=== PATIENT | female | born 1950 | race Caucasian/White ===

== ENCOUNTER → 2017-05-16 | Outpatient (CLI) | payer MEDICARE, BC ==
--- NOTE | 2017-05-18 12:09 | MAM ---
EXAM DESCRIPTION: 3D Screening BILATERAL : Digital Mammography. CLINICAL HISTORY: 66 years Female SCREENING . No complaints. No family history of breast cancer. Postmenopausal. No HRT. COMPARISON: 2-D digital screening bilateral study 01/13/2016. Report from prior examination also reviewed. TECHNIQUE: Bilateral CC and MLO projection full-field images, 3-D tomosynthesis digital mammographic technique. Also bilateral synthesized CC/ MLO full-field images. CAD not utilized. FINDINGS: The breast parenchymal density pattern is: Scattered areas of fibroglandular density. No skin thickening or nipple retraction . Bilateral solitary coarse calcifications and microcalcifications. Multiple ductal calcifications in the anterior breast, left more than right. Stable nodular density upper outer quadrant of the middle third of the left breast. No focal, stellate mass or density, focal asymmetry , and no suspicious microcalcifications bilaterally. Stable mammograms compared to prior study, taking into account differences in mammographic technique IMPRESSION: BI-RADS CATEGORY: 2 - BENIGN FINDINGS. FOLLOW UP: Routine digital bilateral screening, one year interval from May 2017. Written communication explaining the IMPRESSION and follow-up, will be mailed to the patient and referring health care provider. According to the [employer], yearly mammograms are recommended starting at age 40 and continuing as long as a woman is in good health. Any breast change noted on a breast self-exam should be reported promptly to the patient's healthcare provider. Breast MRI is recommended for women with an approximately 20-25% or greater lifetime risk of breast cancer, including women with a strong family history of breast or ovarian cancer and women who have been treated for Hodgkin's disease. A negative mammographic report should not delay tissue diagnosis in patients with significant clinical history or physical findings. Extremely dense breast tissue limits the sensitivity of digital mammography. Electronically signed by: Alvaro Mendoza MD 05/18/2017 12:07 PM [employer]
== END ==
LOC: MAMMO 15:02
PROVIDERS: ATTEND General Practice
DX: Z12.31 Encounter for screening mammogram for malignant neoplasm of breast (principal)
CPT/HCPCS: 77063; G0202

== ENCOUNTER → 2019-02-07 | Outpatient (CLI) | payer MEDICARE, BC ==
--- NOTE | 2019-02-18 11:34 | MAM ---
EXAM DESCRIPTION: MM SCREEN BREAST TOMOSYNTHESIS BILAT 3D : Digital Mammography. CLINICAL HISTORY: 50 years Female screening . No complaints and no personal or family history of breast cancer. Childbirth. Postmenopausal 15+ years. No HRT. Lifetime risk of developing breast cancer (Tyrer-Cuzick model)(%): 3.7. COMPARISON: Bilateral screening digital breast tomosynthesis 05/16/2017. 2-D digital screening bilateral mammography 01/13/2016. TECHNIQUE: Bilateral CC and MLO projection full-field images, digital tomosynthesis mammographic technique. Bilateral digital 2-D full-field MLO images. CAD not available for tomosynthesis or 2-D images. FINDINGS: The breast parenchymal density pattern is: Scattered areas of fibroglandular density. No skin thickening or nipple retraction. Bilateral, solitary, coarse larger, and smaller microcalcifications. Secretory calcifications bilaterally, more on the left. Stable focal asymmetry 3:00 middle third left breast. No new focal, stellate mass or density, focal asymmetry , and no suspicious microcalcifications bilaterally. Stable mammograms compared to prior tomosynthesis study. IMPRESSION: Benign exam. BIRAD CATEGORY: 2 BENIGN FINDINGS. RECOMMENDATIONS: FOLLOW UP: Routine digital bilateral mammographic screening, one year interval from January 2019. Written communication explaining the IMPRESSION and follow-up, will be mailed to the patient and referring health care provider. According to the [employer], yearly mammograms are recommended starting at age 40 and continuing as long as a woman is in good health. Any breast change noted on a breast self-exam should be reported promptly to the patient's healthcare provider. Breast MRI is recommended for women with an approximately 20-25% or greater lifetime risk of breast cancer, including women with a strong family history of breast or ovarian cancer and women who have been treated for Hodgkin's disease. A negative mammographic report should not delay tissue diagnosis in patients with significant clinical history or physical findings. Extremely dense breast tissue limits the sensitivity of digital mammography. Electronically signed by: Alvaro Mendoza MD 02/18/2019 11:33 AM CDT
== END ==
LOC: MAMMO 12:06
PROVIDERS: ATTEND General Practice
DX: Z12.31 Encounter for screening mammogram for malignant neoplasm of breast (principal)

== ENCOUNTER → 2020-05-11 | Outpatient (CLI) | payer MEDICARE, BC ==
--- NOTE | 2020-05-11 11:39 | MRI ---
EXAM DESCRIPTION: Lumbar Spine w/o Contrast : Magnetic Resonance Imaging. CLINICAL HISTORY: RADICULOPATHY COMPARISON: LUMBAR TECHNIQUE: Multiplanar, multiple standard sequences, non contrast MRI, lumbar spine. FINDINGS: L5-S1: The disc is well visualized on axial T2 series 501, image 3. L5 vertebra is transitional with sacralization. The iliolumbar ligament is seen bilaterally inserting on the transverse processes. Disc desiccated with posterior bulge, and central vacuum phenomenon versus calcification. Mild endplate reactive changes on the left with disc spur complex encroaching on the left foramen with moderate narrowing. Mild to moderate narrowing of the right foramen. Minimal hypertrophy of the facet joints and posterior flavum ligaments (canal elements) more left than right. Mild canal narrowing. L4-L5: Disc desiccation and moderate disc space loss. Schmorl's nodes inferior and superior endplates. 8 mm grade 2 anterolisthesis. Posterior disc is uncovered. Moderate hypertrophic changes in the canal elements. AP canal diameter 8 mm. Endplate spur and bone encroachment on the right foramen with mild stenosis and compromise right L4 nerve. Mild to moderate narrowing left foramen. Possible defect in the left L4 pars interarticularis. L3-L4: Disc desiccation and posterior disc space loss. Disc bulge into the canal and bilateral foramina. Grade 1 anterolisthesis 3 mm. Minimal hypertrophic changes in the canal elements. AP canal diameter 8.5 mm. Borderline right foraminal stenosis and moderate left foraminal narrowing. L2-L3: Disc desiccation posterior disc space narrowing and tiny posterior broad-based bulge. Hypertrophic changes in the canal elements. AP canal diameter 11 mm. Bilateral moderate foraminal narrowing. L1-L2: Disc desiccation with anterior posterior bulging. Trace anterolisthesis. Mild depression of the superior L2 endplate with central Schmorl's node but no edema in the disc, the node, or the endplate. Probable retropulsion superior endplate 3.3 mm. Minimal hypertrophic changes in the canal elements. AP canal diameter 12 mm. Borderline right foraminal stenosis and moderate left foraminal narrowing. T12-L1: Disc normal signal with disc space preserved. Canal elements are unremarkable. Bilateral foramina and canal are patent. Conus terminates just below the disc space. L2-L5 levoscoliosis Paravertebral soft tissues fatty muscle atrophy.. Distal cord normal signal and caliber. No marrow signal in the remaining vertebral bodies and the posterior elements. Vertebral bodies are not acutely compressed at any level. IMPRESSION: 1. Sacralization of the L5 vertebral body. Vacuum phenomena and or calcification in the L5-S1 disc space. Left sided plate reactive changes and moderate narrowing of the left foramen. 2. 8 mm grade 2 anterolisthesis L4-L5. Possible defect in the left L4 pars interarticularis. Multifactorial mild to moderate central canal stenosis. Spurring bone encroachment on the right foramen with mild stenosis and compromise right L4 nerve. 3. Grade 1 anterolisthesis L3-L4. Multifactorial mild central canal stenosis. Borderline disc spur right foraminal stenosis. Correlate for right L3 radiculopathy. 4. Old compression injury superior L2 endplate with retropulsion but no canal stenosis. 5. Please refer to FINDINGS for discussion of results at other disc space levels. Electronically signed by: Alvaro Mendoza MD 05/11/2020 11:37 AM [facility]
--- NOTE | 2020-05-12 15:18 | MAM ---
EXAM DESCRIPTION: 3D Screening BILATERAL : Digital Mammography. CLINICAL HISTORY: 69 years Female SCREEN . No complaints. No family history of breast cancer. Menarche age 11. Childbirth age 17. Menopause age 50. Bilateral breast reduction. No HRT. Lifetime risk of developing breast cancer (Tyrer-Cuzick model)(%): 3.5. COMPARISON: Bilateral screening digital breast tomosynthesis January 2019 and May 2017. No prior reports available. TECHNIQUE: Bilateral CC and MLO projection full-field images, digital tomosynthesis mammographic technique. Bilateral digital 2-D full-field MLO images. CAD available for 2-D images. FINDINGS: The breast parenchymal density pattern is: Scattered areas of fibroglandular density. Coarse calcifications. Bilateral solitary microcalcifications. Secretory calcifications more on the left breast. Axillary nodes. No skin thickening or nipple retraction No new focal, stellate mass or density, focal asymmetry , and no suspicious microcalcifications bilaterally. Stable mammograms compared to prior study. IMPRESSION: Benign exam. BIRAD CATEGORY: 2 BENIGN FINDINGS. RECOMMENDATIONS: FOLLOW UP: Routine digital bilateral mammographic screening, one year interval from May 2020. Written communication explaining the IMPRESSION and follow-up, will be mailed to the patient and referring health care provider. According to the [employer], yearly mammograms are recommended starting at age 40 and continuing as long as a woman is in good health. Any breast change noted on a breast self-exam should be reported promptly to the patient's healthcare provider. Breast MRI is recommended for women with an approximately 20-25% or greater lifetime risk of breast cancer, including women with a strong family history of breast or ovarian cancer and women who have been treated for Hodgkin's disease. A negative mammographic report should not delay tissue diagnosis in patients with significant clinical history or physical findings. Extremely dense breast tissue limits the sensitivity of digital mammography. Electronically signed by: Alvaro Mendoza MD 05/12/2020 3:16 PM [employer]
== END ==
LOC: MRI 07:59
PROVIDERS: ATTEND General Practice
DX: Z12.31 Encounter for screening mammogram for malignant neoplasm of breast (principal); M54.17 Radiculopathy, lumbosacral region; Q76.49 Other congenital malformations of spine, not associated with scoliosis; M51.17 Intervertebral disc disorders with radiculopathy, lumbosacral region; M48.061 Spinal stenosis, lumbar region without neurogenic claudication; M25.78 Osteophyte, vertebrae; M48.56XS Collapsed vertebra, not elsewhere classified, lumbar region, sequela of fracture